=== PATIENT | male | born 1980 | race African-American/Black ===

== ENCOUNTER 2016-05-08 20:05 | Emergency (ER) | payer SELFPAY ==
[~2016-05-08 20:05] MED LIST: *DENIES; CIP5 PO; FLAG500TAB PO; NORV10 PO; STERAPRED DS10 MG
== END 2016-05-08 20:30 | disposition home or self-care (01) ==
LOC: ER 20:05
PROC: 0HQGXZZ Repair Left Hand Skin, External Approach (ICD-10-PCS; principal; 2016-05-08)
DX: S61.215A Laceration without foreign body of left ring finger without damage to nail, initial encounter (principal); W45.8XXA Other foreign body or object entering through skin, initial encounter
CPT/HCPCS: 73130-LT; 90471; 90714; 99283